=== PATIENT | male | born 1955 | race Caucasian/White ===

== ENCOUNTER → 2020-02-25 | Outpatient (CLI) | payer OTHER ==
[~2020-02-25] MED LIST: OMNIPAQUE 350 MG/ML, 100ML BOTTLE ONE
[2020-02-25 13:36] LABS: CREATININE 1.06 mg/dL (0.7-1.3)
== END | disposition home or self-care (01) ==
LOC: RAD 13:06
PROVIDERS: ATTEND Family Medicine
DX: E04.1 Nontoxic single thyroid nodule (principal); E88.2 Lipomatosis, not elsewhere classified; R59.9 Enlarged lymph nodes, unspecified; K11.20 Sialoadenitis, unspecified
CPT/HCPCS: 36415; 70491; 82565; Q9967

== ENCOUNTER → 2020-03-10 | Outpatient (CLI) | payer OTHER | END | disposition home or self-care (01) | LOC: RAD 12:41 | PROVIDERS: ATTEND Family Medicine | DX: E04.1 Nontoxic single thyroid nodule (principal) | CPT/HCPCS: 10005; 88112; 88305 ==